=== PATIENT | male | born 1945 | race Caucasian/White ===

== ENCOUNTER 2017-08-12 13:36 | Observation (INO) | payer MEDICARE ==
[~2017-08-12] VITALS: Ht 180.3 cm; Wt 76.0 kg
[2017-08-12 13:42] VITALS: BP 210/90; PULSE 47; RESP 14; O2SAT 95
[2017-08-12] MEDS ORDERED: SODIUM CHLOR 0.9% 1000 ML INJ 1,000 ML IV SCH (14:05)
--- NOTE | 2017-08-12 14:24 | PD ---
HPI Chief Complaint: Flank/Kidney Pain Time Seen by Provider: 13:56 Travel History International Travel<30 days: No Contact w/Intl Traveler<30days: No Traveled to known affect area: No History of Present Illness HPI 71-year-old male complains of right flank pain and hematuria. Patient states that the symptoms started 2 days ago. Patient states that the hematuria is worse today. Patient states the pain started in the right flank area and moved to the right side abdomen today. Patient states the pain is more severe on the right low quadrant of the abdomen. Patient denies any pain radiation. Patient denies any dysuria or frequency. Patient denies any history kidney stone in the past. Patient denies any nausea vomiting diarrhea. Patient has history hypertension and hyperlipidemia. Patient denies history of diabetes. Patient smokes cigar daily. Patient denies any alcohol abuse. Patient came to a local urgent care this afternoon and was advised to go to ED for evaluation. PFSH Past Medical History Cardiovascular Problems: Yes ([place]) Social History Tobacco Use: No Allergies-Medications (Allergen,Severity, Reaction): Coded Allergies: No Known Allergies (Unverified , 08/12/17) Reported Meds & Prescriptions Reported Meds & Active Scripts Active Reported Losartan (Losartan Potassium) 25 Mg Tab 25 Mg PO DAILY Preservision-Lutein (Multiple Vitamins W/ Minerals) 1 Cap 1 Cap PO DAILY Pravastatin 10 Mg Tab 10 Mg PO HS Aspirin 81 Mg Chew 81 Mg CHEW DAILY Zoloft (Sertraline HCl) 100 Mg Tab 50 Mg PO BID Levothyroxine (Levothyroxine Sodium) 88 Mcg Tab 88 Mcg PO DAILY Review of Systems General / Constitutional: No: Fever Eyes: No: Visual changes HENT: No: Headaches Cardiovascular: No: Chest Pain or Discomfort Respiratory: No: Shortness of Breath Gastrointestinal: Positive: Abdominal Pain Genitourinary: Positive: Hematuria, No: Dysuria Musculoskeletal: No: Pain Skin: No Rash Neurologic: No: Weakness Psychiatric: No: Depression Endocrine: No: Polydipsia Hematologic/Lymphatic: No: Easy Bruising Physical Exam Narrative GENERAL: Well-nourished, well-developed patient. SKIN: Focused skin assessment warm/dry. HEAD: Normocephalic. EYES: No scleral icterus. No injection or drainage. NECK: Supple, trachea midline. No JVD or lymphadenopathy. CARDIOVASCULAR: Regular rate and rhythm without murmurs, gallops, or rubs. RESPIRATORY: Breath sounds equal bilaterally. No accessory muscle use. GASTROINTESTINAL: Abdomen soft, nondistended. Mild tenderness on palpation right mid abdomen. No rebound tenderness. No mass. MUSCULOSKELETAL: No cyanosis, or edema. BACK: Nontender without obvious deformity. No CVA tenderness. Neurologic exam normal. Data Data Last Documented VS Vital Signs Date Time Temp Pulse Resp B/P (MAP) Pulse Ox O2 Delivery O2 Flow Rate FiO2 08/12/17 16:00 44 18 159/72 (101) 99 Orders Orders Complete Blood Count With Diff (08/12/17 14:05) Comprehensive Metabolic Panel (08/12/17 14:05) Prothrombin Time / Inr (Pt) (08/12/17 14:05) Act Partial Throm Time (Ptt) (08/12/17 14:05) Urinalysis - C+S If Indicated (08/12/17 14:05) Iv Access Insert/Monitor (08/12/17 14:05) Ecg Monitoring (08/12/17 14:05) Oximetry (08/12/17 14:05) Sodium Chlor 0.9% 1000 Ml Inj (Ns 1000 M (08/12/17 14:05) Morphine Inj (Morphine Inj) (08/12/17 14:30) Ondansetron Inj (Zofran Inj) (08/12/17 14:30) Ct Abd/Pel W/O Iv Contrast (08/12/17 14:37) Urine Culture (08/12/17 13:30) Hydromorphone Pf Inj (Dilaudid Pf Inj) (08/12/17 15:15) Ketorolac Inj (Toradol Inj) (08/12/17 16:00) Ceftriaxone Inj (Rocephin Inj) (08/12/17 16:00) Consult Urology (08/12/17 ) (Hub Use Only)Inp Phy Cons/Ref (08/12/17 ) Place In Observation (08/12/17 ) Vital Signs (Adult) Q4H (08/12/17 17:06) Intake + Output CANDIS.QSHIFT (08/12/17 17:06) Sodium Chloride 0.9% Flush (Ns Flush) (08/12/17 17:15) Sodium Chloride 0.9% Flush (Ns Flush) (08/12/17 21:00) Ondansetron Inj (Zofran Inj) (08/12/17 17:15) Comprehensive Metabolic Panel (08/13/17 06:00) Complete Blood Count With Diff (08/13/17 06:00) Pt Request For Service (08/12/17 17:06) Case Management Consult (08/12/17 17:06) Scd Bilateral/Knee High CANDIS.BID (08/12/17 17:06) Naloxone Inj (Narcan Inj) (08/12/17 17:15) Docusate Sodium-Senna (Deena-Colace) (08/12/17 21:00) Magnesium Hydroxide Liq (Milk Of Magnesi (08/12/17 17:15) Sennosides (Senokot) (08/12/17 17:15) Bisacodyl Supp (Dulcolax Supp) (08/12/17 17:15) Lactulose Liq (Lactulose Liq) (08/12/17 17:15) Admit Order (Ed Use Only) (08/12/17 17:06) Labs Laboratory Tests Test 08/12/17 13:10 08/12/17 13:30 White Blood Count 9.4 TH/MM3 Red Blood Count 4.57 MIL/MM3 Hemoglobin 15.1 GM/DL Hematocrit 44.0 % Mean Corpuscular Volume 96.3 FL Mean Corpuscular Hemoglobin 33.0 PG Mean Corpuscular Hemoglobin Concent 34.2 % Red Cell Distribution Width 13.1 % Platelet Count 166 TH/MM3 Mean Platelet Volume 8.6 FL Neutrophils (%) (Auto) 76.5 % Lymphocytes (%) (Auto) 16.0 % Monocytes (%) (Auto) 6.5 % Eosinophils (%) (Auto) 0.6 % Basophils (%) (Auto) 0.4 % Neutrophils # (Auto) 7.2 TH/MM3 Lymphocytes # (Auto) 1.5 TH/MM3 Monocytes # (Auto) 0.6 TH/MM3 Eosinophils # (Auto) 0.1 TH/MM3 Basophils # (Auto) 0.0 TH/MM3 CBC Comment DIFF FINAL Differential Comment Prothrombin Time 10.6 SEC Prothromb Time International Ratio 1.0 RATIO Activated Partial Thromboplast Time 26.3 SEC Blood Urea Nitrogen 21 MG/DL Creatinine 1.13 MG/DL Random Glucose 98 MG/DL Total Protein 7.9 GM/DL Albumin 4.1 GM/DL Calcium Level 9.0 MG/DL Alkaline Phosphatase 51 U/L Aspartate Amino Transf (AST/SGOT) 16 U/L Alanine Aminotransferase (ALT/SGPT) 25 U/L Total Bilirubin 0.5 MG/DL Sodium Level 141 MEQ/L Potassium Level 4.2 MEQ/L Chloride Level 104 MEQ/L Carbon Dioxide Level 28.7 MEQ/L Anion Gap 8 MEQ/L Estimat Glomerular Filtration Rate 64 ML/MIN Uric Acid 4.6 MG/DL Total Creatine Kinase 105 U/L Creatine Kinase MB 3.0 NG/ML Troponin I LESS THAN 0.02 NG/ML Urine Color RED Urine Turbidity CLOUDY Urine pH 5.5 Urine Specific [place] 1.031 Urine Protein 100 mg/dL Urine Glucose (UA) NEG mg/dL Urine Ketones TRACE mg/dL Urine Occult Blood LARGE Urine Nitrite NEG Urine Bilirubin NEG Urine Urobilinogen LESS THAN 2.0 MG/DL Urine Leukocyte Esterase NEG Urine RBC /hpf Urine WBC 88 /hpf Urine Bacteria FEW /hpf Urine Mucus FEW /lpf Microscopic Urinalysis Comment CULTURE INDICATED MDM Medical Decision Making Medical Screen Exam Complete: Yes Emergency Medical Condition: Yes Interpretation(s) [address] scan abdomen and pelvis shows mild obstructive uropathy on the right ureter with a proximal ureteral calculus measuring between 4-5 mm. CBC within normal limit. CMP within normal limit. BUN 21. UA positive for RBC WBC and bacteria. Differential Diagnosis Differential diagnosis including nephrolithiasis, pyelonephritis, hematuria, abdominal aortic aneurysm. Narrative Course 71-year-old male with right flank pain and right-sided abdominal pain and hematuria. Normal saline solution 1 25 cc an hour. Morphine 2 mg IV. Zofran 4 mg IV. Dilaudid 0.5 mg IV. Rocephin 1 g IV. Toradol 30 mg IV. Diagnosis Primary Impression: Nephrolithiasis Additional Impression: Intractable abdominal pain Jarvis Fitzpatrick MD Aug 12, 2017 14:24
[2017-08-12] MEDS ORDERED: MORPHINE SULFATE 2 MG/ML INJ IV PUSH ONE (14:30)
[2017-08-12] MEDS ORDERED: ONDANSETRON HCL 4 MG/2 ML VIAL IV PUSH ONE (14:30)
[2017-08-12 14:46] LABS: AUTOMATED NEUTROPHIL # 7.2 TH/MM3 (1.8-7.7); BASOPHIL % 0.4 % (0.0-2.0); EOSINOPHIL # 0.1 TH/MM3 (0-0.4); EOSINOPHIL % 0.6 % (0.0-4.0); HEMOGLOBIN 15.1 GM/DL (13.0-17.0); LYMPHOCYTE # 1.5 TH/MM3 (1.0-4.8); MEAN CELL VOLUME 96.3 FL (80.0-100.0); MEAN CORPUSCULAR HGB CONC 34.2 % (32.0-36.0); MEAN PLATELET VOLUME 8.6 FL (7.0-11.0); MONO % 6.5 % (0.0-8.0); MONOCYTE # 0.6 TH/MM3 (0-0.9); NEUT % 76.5 % (16.0-70.0); PLATELET COUNT 166 TH/MM3 (150-450); RED BLOOD COUNT 4.57 MIL/MM3 (4.50-5.90); RED CELL DISTRIBUTION WIDTH 13.1 % (11.6-17.2); WHITE BLOOD COUNT 9.4 TH/MM3 (4.0-11.0)
[2017-08-12 14:55] LABS: PROTHROMBIN TIME - PATIENT 10.6 SEC (9.8-11.6)
[2017-08-12 15:04] LABS: ALBUMIN 4.1 GM/DL (3.4-5.0); ALT (GPT) 25 U/L (12-78); AST (GOT) 16 U/L (15-37); BICARBONATE 28.7 MEQ/L (21.0-32.0); BLOOD UREA NITROGEN 21 MG/DL (7-18); CHLORIDE 104 MEQ/L (98-107); CREATININE 1.13 MG/DL (0.60-1.30); GLOMERULAR FILTRATION RATE 64 ML/MIN (>89); GLUCOSE,RANDOM 98 MG/DL (74-106); SODIUM (NA) 141 MEQ/L (136-145)
[2017-08-12 15:06] LABS: ALKALINE PHOSPHATASE 51 U/L (45-117); TOTAL BILIRUBIN ADULT 0.5 MG/DL (0.2-1.0); TOTAL PROTEIN 7.9 GM/DL (6.4-8.2)
[2017-08-12 15:07] LABS: BACTERIA, URINE FEW /hpf; BILIRUBIN, URINE NEG (NEG); BLOOD, URINE LARGE (NEG); GLUCOSE,URINE NEG (NEG); KETONE, URINE TRACE mg/dL (NEG); MUCUS URINE FEW /lpf (OCC); NITRITE,URINE NEG (NEG); PH, URINE 5.5 (5.0-8.5); URINE LEUKOCYTE ESTERASE NEG (NEG)
[2017-08-12 15:08] LABS: URINE COLOR RED (YELLW/STRAW)
[2017-08-12] MEDS ORDERED: HYDROmorphone HCL PF 0.5 MG/0.5 ML SYRINGE IV PUSH ONE (15:15)
[2017-08-12] MEDS ORDERED: ZOLO100T PO (15:28)
[2017-08-12] MEDS ORDERED: ASPI-516 CHEW (15:28)
[2017-08-12] MEDS ORDERED: LEVO88TA2 PO (15:28)
[2017-08-12] MEDS ORDERED: LOSA25TA PO (15:28)
[2017-08-12] MEDS ORDERED: PRESCAP6 PO (15:28)
[2017-08-12] MEDS ORDERED: PRAV10TA PO (15:28)
--- NOTE | 2017-08-12 15:35 | RADRPT ---
EXAM DATE/TIME: 08/12/2017 15:23 [facility] COMPARISON: No previous studies available for comparison. INDICATIONS : Right flank pain with hematuria for three days. ORAL CONTRAST: No oral contrast ingested. RADIATION DOSE: 6.36 CTDIvol (mGy) MEDICAL HISTORY : Cardiovascular disease. SURGICAL HISTORY : None. ENCOUNTER: Initial ACUITY: 3 days PAIN SCALE: 8/10 LOCATION: Right flank TECHNIQUE: Volumetric scanning of the abdomen and pelvis was performed. Using automated exposure control and ad justment of the mA and/or kV according to patient size, radiation dose was kept as low as reasonably achievable to obtain optimal diagnostic quality images. DICOM format image data is available electro nically for review and comparison. FINDINGS: LOWER LUNGS: The visualized lower lungs are clear. LIVER: Homogeneous density without lesion. There is no dilation of the biliary tree. No calcified gallston es. SPLEEN: Normal size without lesion. PANCREAS: Within normal limits. KIDNEYS: Normal in size and shape. There is no mass, stone, or hydronephrosis on the left. Mild obstructive u ropathy on the right secondary to a proximal ureteral calculus measuring 4-5 mm. ADRENAL GLANDS: Within normal limits. VASCULAR: There is no aortic aneurysm. Atherosclerotic calcifications. BOWEL/MESENTERY: Scattered diverticulosis without diverticulitis. There is no free intraperitoneal air or fluid. ABDOMINAL WALL: Within normal limits. RETROPERITONEUM: There is no lymphadenopathy. BLADDER: No wall thickening or mass. REPRODUCTIVE: Within normal limits. INGUINAL: There is no lymphadenopathy or hernia. MUSCULOSKELETAL: Within normal limits for patient age. CONCLUSION: 1. Mild obstructive uropathy on the right secondary to a proximal ureteral calculus measuring 4-5 mm. 2. Diverticulosis without diverticulitis. Lino Madrid MD on August 12, 2017 at 15:32 Board Certified Radiologist. This report was verified electronically.
[2017-08-12 16:00] VITALS: BP 159/72; PULSE 44; RESP 18; O2SAT 99
[2017-08-12] MEDS ORDERED: cefTRIAXone INJ 1,000 MG in SODIUM CHLORIDE 0.9% INJ 100 ML IV ONE (16:00)
[2017-08-12] MEDS ORDERED: KETOROLAC TROMETHAMINE 30 MG/ML (IVP) VIAL IV PUSH ONE (16:00)
[2017-08-12] MEDS ORDERED: SENNOSIDES 8.6 MG TAB PO PRN (17:15)
[2017-08-12] MEDS ORDERED: NALOXONE HCL 0.4 MG/ML AMP IV PUSH PRN (17:15)
[2017-08-12] MEDS ORDERED: BISACODYL 10 MG SUPP RECTAL PRN (17:15)
[2017-08-12] MEDS ORDERED: MAGNESIUM HYDROXIDE SUSP 30 ML CUP PO PRN (17:15)
[2017-08-12] MEDS ORDERED: LACTULOSE SYRUP 20 GM/30 ML CUP PO PRN (17:15)
[2017-08-12] MEDS ORDERED: SODIUM CHLORIDE 0.9% FLUSH 10 ML FLUSH IV FLUSH PRN (17:15)
--- NOTE | 2017-08-12 17:28 | HHI.HP ---
HPI Service Family Medicine Primary Care Physician No Primary Care Physician Admission Diagnosis nephrolithiasis. Intractable pain. Diagnoses: International Travel<30 Days: No Contact w/Intl Traveler<30days: No History of Present Illness Patient is a 71M with history of hypertension, CAD, hypothyroidism, depression who presents with intractable right flank and abdominal pain. PCP: None HPI: He has had 4-7 days of back pain, which initially he thought was from working out. He weight lifts, jogs 4 times per week at baseline. Yesterday he noted gross blood in his urine. This is the first occurrence. It has occurred every time he is urinated since yesterday. It is not painful. The patient initially had migrated from the back to the RLQ then to the midabdomen this morning. He states that the pain also became more intense. It is now dull but pain caused nausea when more severe. The pain is constant. He has no history of kidney stones. He has no dysuria. He denies fevers, chills. Review of Systems Constitutional: DENIES: Fever, Weight gain, Weight loss, Chills Eyes: DENIES: Blurred vision, Diplopia, Vision loss Ears, nose, mouth, throat: COMPLAINS OF: Hearing loss (chronic) Respiratory: DENIES: Cough, Wheezing, Hemoptysis, Sputum production, Shortness of breath Cardiovascular: DENIES: Chest pain, Palpitations, Syncope, Lower Extremity Edema Gastrointestinal: COMPLAINS OF: Abdominal pain, Constipation, Nausea, DENIES: Black stools, Bloody stools, Diarrhea, Vomiting Genitourinary: COMPLAINS OF: Hematuria, DENIES: Urinary frequency, Urinary incontinence, Urgency, Dysuria Musculoskeletal: COMPLAINS OF: Back pain, DENIES: Joint Swelling Integumentary: DENIES: Pruritus, Rash Hematologic/lymphatic: DENIES: Bruising, Lymphadenopathy Neurologic: DENIES: Headache, Localized weakness Psychiatric: DENIES: Anxiety, Depression Past Family Social History Past Medical History [place]: stent and angiography 1996 CAB08/21/2011 HTN Hypothyroidism Deafness Depression Past Surgical History CABG and stenting as above Reported Medications Reported Meds & Active Scripts Active Reported Losartan (Losartan Potassium) 25 Mg Tab 25 Mg PO DAILY Preservision-Lutein (Multiple Vitamins W/ Minerals) 1 Cap 1 Cap PO DAILY Pravastatin 10 Mg Tab 10 Mg PO HS Aspirin 81 Mg Chew 81 Mg CHEW DAILY Zoloft (Sertraline HCl) 100 Mg Tab 50 Mg PO BID Levothyroxine (Levothyroxine Sodium) 88 Mcg Tab 88 Mcg PO DAILY Allergies: Coded Allergies: No Known Allergies (Unverified , 08/12/17) Active Ordered Medications Inpatient Medications Bisacodyl (Dulcolax Supp) 10 mg DAILY PRN RECTAL SEVERE CONSITIPATION; Start 08/12/17 at 17:15; Status UNV Ceftriaxone Sodium 1000 mg/ Sodium Chloride 100 ml @ 200 mls/hr ONCE ONCE IV Last administered on 08/12/17 16:08; Start 08/12/17 at 16:00; Stop 08/12/17 at 16:29; Status DC Hydromorphone HCl (Dilaudid Pf Inj) 0.5 mg ONCE ONCE IV PUSH Last administered on 08/12/17 15:19; Start 08/12/17 at 15:15; Stop 08/12/17 at 15:16 ; Status DC Ketorolac Tromethamine (Toradol Inj) 30 mg ONCE ONCE IV PUSH Last administered on 08/12/17 16:07; Start 08/12/17 at 16:00; Stop 08/12/17 at 16:01 ; Status DC Lactulose (Lactulose Liq) 30 ml DAILY PRN PO SEVERE CONSITIPATION; Start at 17:15; Status UNV Magnesium Hydroxide (Milk Of Magnesia Liq) 30 ml Q12H PRN PO Mild constipation ; Start 08/12/17 at 17:15; Status UNV Morphine Sulfate (Morphine Inj) 2 mg ONCE ONCE IV PUSH Last administered on 14:28; Start 08/12/17 at 14:30; Stop 08/12/17 at 14:32; Status DC Naloxone HCl (Narcan Inj) 0.4 mg UNSCH PRN IV PUSH SEE LABEL COMMENTS; Start 08/12/17 at 17:15; Status UNV Ondansetron HCl (Zofran Inj) 4 mg Q6H PRN IVP NAUSEA OR VOMITING; Start at 17:15; Status UNV Senna/Docusate Sodium (Deena-Colace) 1 tab BID PO ; Start 08/12/17 at 21:00; Status UNV Sennosides (Senokot) 17.2 mg Q12H PRN PO Moderate constipation; Start 08/12/17 at 17:15; Status UNV Sodium Chloride (NS Flush) 2 ml BID IV FLUSH ; Start 08/12/17 at 21:00; Status UNV Family History Mother: cardiac Father: unknown, at 101 Siblings: healthy Children: healthy Social History Lives with Just moved from [facility] Tobacco: cigars 1/3 daily x 1 year, quit tobacco 1984 (30 years 1PPD) Alcohol: 1 drink (martini or scotch) daily Illicit: denies Physical Exam Vital Signs Vital Signs Date Time Temp Pulse Resp B/P (MAP) Pulse Ox O2 Delivery O2 Flow Rate FiO2 08/12/17 16:00 44 18 159/72 (101) 99 08/12/17 13:42 47 14 210/90 (130) 95 Physical Exam GENERAL: Well-nourished, elderly male. He is in no apparent distress. He is sitting up in bed. SKIN: Warm and dry. No obvious rashes or ecchymoses. HEAD: Atraumatic. Normocephalic. EYES: Pupils equal and round. No scleral icterus. No injection or drainage. ENT: No nasal bleeding or discharge. Mucous membranes pink and moist. NECK: Trachea midline. No JVD. CARDIOVASCULAR: Regular rate and rhythm. No murmurs, gallops, or rubs on auscultation. RESPIRATORY: No accessory muscle use. Clear to auscultation bilaterally with no wheezes or rhonchi. BACK: No CVA tenderness noted GASTROINTESTINAL: Abdomen soft, nondistended. Normal bowel sounds. Mild tenderness to palpation over the epigastric area. No hepatic or splenic enlargement noted. MUSCULOSKELETAL: Extremities without clubbing, cyanosis, or edema. No obvious deformities. NEUROLOGICAL: Awake and alert. No obvious cranial nerve deficits. Motor grossly within normal limits. Grossly normal strength. Normal speech. PSYCHIATRIC: Appropriate mood and affect; insight and judgment normal. Laboratory Laboratory Tests Test 08/12/17 13:10 08/12/17 13:30 White Blood Count 9.4 Red Blood Count 4.57 Hemoglobin 15.1 Hematocrit 44.0 Mean Corpuscular Volume 96.3 Mean Corpuscular Hemoglobin 33.0 Mean Corpuscular Hemoglobin Concent 34.2 Red Cell Distribution Width 13.1 Platelet Count 166 Mean Platelet Volume 8.6 Neutrophils (%) (Auto) 76.5 Lymphocytes (%) (Auto) 16.0 Monocytes (%) (Auto) 6.5 Eosinophils (%) (Auto) 0.6 Basophils (%) (Auto) 0.4 Neutrophils # (Auto) 7.2 Lymphocytes # (Auto) 1.5 Monocytes # (Auto) 0.6 Eosinophils # (Auto) 0.1 Basophils # (Auto) 0.0 CBC Comment DIFF FINAL Differential Comment Prothrombin Time 10.6 Prothromb Time International Ratio 1.0 Activated Partial Thromboplast Time 26.3 Blood Urea Nitrogen 21 Creatinine 1.13 Random Glucose 98 Total Protein 7.9 Albumin 4.1 Calcium Level 9.0 Alkaline Phosphatase 51 Aspartate Amino Transf (AST/SGOT) 16 Alanine Aminotransferase (ALT/SGPT) 25 Total Bilirubin 0.5 Sodium Level 141 Potassium Level 4.2 Chloride Level 104 Carbon Dioxide Level 28.7 Anion Gap 8 Estimat Glomerular Filtration Rate 64 Urine Color RED Urine Turbidity CLOUDY Urine pH 5.5 Urine Specific [place] 1.031 Urine Protein 100 Urine Glucose (UA) NEG Urine Ketones TRACE Urine Occult Blood LARGE Urine Nitrite NEG Urine Bilirubin NEG Urine Urobilinogen LESS THAN 2.0 Urine Leukocyte Esterase NEG Urine RBC Urine WBC 88 Urine Bacteria FEW Urine Mucus FEW Microscopic Urinalysis Comment CULTURE INDICATED Date/Time Source Procedure Growth Status 08/12/17 13:30 Urine Random Urine Urine Culture Pending Received Result Diagram: 08/12/17 1310 08/12/17 1310 Imaging Last Impressions Abdomen/Pelvis CT 08/12/17 0247 Signed Impressions: Service Date/Time: August 15:23 - CONCLUSION: 1. Mild obstructive uropathy on the right secondary to a proximal ureteral calculus measuring 4-5 mm. 2. Diverticulosis without diverticulitis. Lino Madrid MD Course Patient was seen and evaluated in the ED by ED physician. Basic labs, UA, NS bolus of 1 L administered. Under management including Zofran, morphine, Dilaudid , Toradol 1. CT abdomen pelvis performed. Urology consulted. Caprini VTE Risk Assessment Caprini VTE Risk Assessment: Mod/High Risk (score >= 2) Caprini Risk Assessment Model Point Value = 1 Point Value = 2 Point Value = 3 Point Value = 5 Age 41-60 Minor surgery BMI > 25 kg/m2 Swollen legs Varicose veins or History of unexplained or recurrent spontaneous Oral contraceptives or hormone replacement Sepsis (< 1 month) Serious lung disease, including pneumonia (< 1 month) Abnormal pulmonary function Acute myocardial infarction Congestive heart failure (< 1 month) History of inflammatory bowel disease Medical patient at bed rest Age 61-74 Arthroscopic surgery Major open surgery (> 45 min) Laparoscopic surgery (> 45 min) Malignancy Confined to bed (> 72 hours) Immobilizing plaster cast Central venous access Age >= 75 History of VTE Family history of VTE Factor V Leiden Prothrombin [id number] Lupus anticoagulant Anticardiolipin antibodies Elevated serum homocysteine Heparin-induced thrombocytopenia Other congenital or acquired thrombophilia Stroke (< 1 month) Elective arthroplasty Hip, pelvis, or leg fracture Acute spinal cord injury (< 1 month) Prophylaxis Regimen Total Risk Factor Score Risk Level Prophylaxis Regimen 0-1 Low Early ambulation 2 Moderate Order ONE of the following: *Sequential Compression Device (SCD) *Heparin 5000 units SQ BID 3-4 Higher Order ONE of the following medications: *Heparin 5000 units SQ TID *Enoxaparin/Lovenox 40 mg SQ daily (WT < 150 kg, CrCl > 30 mL/min) *Enoxaparin/Lovenox 30 mg SQ daily (WT < 150 kg, CrCl > 10-29 mL/min) *Enoxaparin/Lovenox 30 mg SQ BID (WT < 150 kg, CrCl > 30 mL/min) AND/OR *Sequential Compression Device (SCD) 5 or more Highest Order ONE of the following medications: *Heparin 5000 units SQ TID (Preferred with Epidurals) *Enoxaparin/Lovenox 40 mg SQ daily (WT < 150 kg, CrCl > 30 mL/min) *Enoxaparin/Lovenox 30 mg SQ daily (WT < 150 kg, CrCl > 10-29 mL/min) *Enoxaparin/Lovenox 30 mg SQ BID (WT < 150 kg, CrCl > 30 mL/min) AND *Sequential Compression Device (SCD) Assessment and Plan Assessment and Plan 71-year-old male with severe right flank pain and CT findings suggestive of obstructive uropathy due to nephrolithiasis. He'll be admitted for observation for pain control, further management of nephrolithiasis, urology evaluation. Code Status Full code Discussed Condition With Dr. Sinai Hale Problem List: (1) Nephrolithiasis ICD Codes: N20.0 - Calculus of kidney Status: Acute Plan: Assessment: * On evaluation, patient is noted to have cloudy red urine, 100 protein, trace ketones, large blood, 88 WBCs. * CT abdomen and pelvis showing mild obstructive element in the proximal right ureter * Urine culture pending Plan: * NS at maintenance rate * Strain urine * Flomax * Pain control with [place] 5-325 mg pain 1-5. Dilaudid 1 mg IV every 4 hours pain 6-10. * Scheduled Toradol 15 mg IV every 6 hours * Urology consulted, patient is NPO after midnight * Rocephin 1 given in ED. UA notable for negative leukocyte esterase and negative nitrite. Monitor CBC and consider antibiotics for worsening symptoms, pending urine culture (2) Intractable abdominal pain ICD Codes: R10.9 - Unspecified abdominal pain Status: Acute Plan: * as above (3) HTN (hypertension) ICD Codes: I10 - Essential (primary) hypertension Status: Chronic Plan: Patient with HTN and CAD status post CABG and stenting remotely. He also has a history of hyperlipidemia. * Continue home dose losartan at 25 mg daily * Continue pravastatin 10 mg nightly * Hold 81mg daily aspirin * PRN clonidine (4) Depression ICD Codes: F32.9 - Major depressive disorder, single episode, unspecified Status: Chronic Plan: Chronic. Patient is on Zoloft at home. He does not exhibit any evidence of exacerbation of mood symptoms. * Continue Zoloft 50 mg twice daily (5) Hypothyroidism ICD Codes: E03.9 - Hypothyroidism, unspecified Status: Chronic Plan: Chronic. Patient is on low-dose levothyroxine. * Levothyroxine 88 g daily to continue (6) Fluids/Electrolytes/Nutrition/Prophylaxis Status: Acute Plan: Fluids: NS @ 115ml/hr Electrolytes: monitor and replete as needed Nutrition: regular diet now, NPO after midnight DVT Prophylaxis: Early ambulation. Hold /bilateral SCDs] GI Prophylaxis: [steroids/ventilator/GIB/burn] PRN anti-HTN: Clonidine 0.1mg PO PRN for SBP > 180/ and/or DBP > 100 Problem Qualifiers (1) Depression: Aixa De Oliveira MD R2 Aug 12, 2017 17:28
[2017-08-12] MEDS ORDERED: ACETAMINOPHEN/HYDROcodone 325 MG/5 MG TAB PO PRN (17:45)
[2017-08-12] MEDS ORDERED: HYDROmorphone HCL PF 1 MG/ML VIAL IV PUSH PRN (17:45)
[2017-08-12 19:30] LABS: TROPONIN I LESS THAN 0.02 NG/ML (0.02-0.05)
[2017-08-12] MEDS ORDERED: TAMSULOSIN HCL 0.4 MG CAP PO SCH (21:00)
[2017-08-12 21:16] VITALS: BP 158/71; PULSE 50; RESP 16; TEMP 97.9; O2SAT 96
[2017-08-12] MEDS: SODIUM CHLOR 0.9% 1000 ML INJ 1,000 ML IV SCH (21:48)
[2017-08-12] MEDS: SODIUM CHLORIDE 0.9% FLUSH 10 ML FLUSH IV FLUSH SCH (21:48)
[2017-08-12] MEDS: DOCUSATE SODIUM 50 MG/SENNA 8.6 MG TAB PO SCH (21:49)
[2017-08-12] MEDS ORDERED: cloNIDine HCL 0.1 MG TAB PO PRN (23:00)
[2017-08-13] MEDS: KETOROLAC TROMETHAMINE 30 MG/ML (IVP) VIAL IV PUSH SCH ×3 (00:14→11:45)
[2017-08-13] MEDS: ONDANSETRON HCL 4 MG/2 ML VIAL IVP PRN ×3 (00:14→11:45)
[2017-08-13 01:59] VITALS: BP 135/60; PULSE 45; RESP 16; TEMP 97.7; O2SAT 97
[2017-08-13 05:51] VITALS: BP 157/74; PULSE 45; RESP 16; TEMP 97.6; O2SAT 97
[2017-08-13] MEDS ORDERED: LEVOTHYROXINE SODIUM 88 MCG TAB PO SCH (06:00)
[2017-08-13 06:16] LABS: AUTOMATED NEUTROPHIL # 5.9 TH/MM3 (1.8-7.7); BASOPHIL % 0.2 % (0.0-2.0); EOSINOPHIL # 0.1 TH/MM3 (0-0.4); EOSINOPHIL % 0.7 % (0.0-4.0); HEMATOCRIT 39.8 % (39.0-51.0); HEMOGLOBIN 13.4 GM/DL (13.0-17.0); LYMPHOCYTE # 1.4 TH/MM3 (1.0-4.8); MEAN CELL VOLUME 96.2 FL (80.0-100.0); MEAN CORPUSCULAR HEMOGLOBIN 32.3 PG (27.0-34.0); MEAN CORPUSCULAR HGB CONC 33.6 % (32.0-36.0); MEAN PLATELET VOLUME 9.2 FL (7.0-11.0); MONO % 8.8 % (0.0-8.0); MONOCYTE # 0.7 TH/MM3 (0-0.9); NEUT % 73.3 % (16.0-70.0); PLATELET COUNT 140 TH/MM3 (150-450); RED BLOOD COUNT 4.14 MIL/MM3 (4.50-5.90); RED CELL DISTRIBUTION WIDTH 13.2 % (11.6-17.2)
[2017-08-13] MEDS: SODIUM CHLOR 0.9% 1000 ML INJ 1,000 ML IV SCH ×2 (06:26→11:24)
[2017-08-13 06:40] LABS: ALKALINE PHOSPHATASE 43 U/L (45-117); ALT (GPT) 17 U/L (12-78); AST (GOT) 14 U/L (15-37); BICARBONATE 26.4 MEQ/L (21.0-32.0); BLOOD UREA NITROGEN 26 MG/DL (7-18); CALCIUM 8.2 MG/DL (8.5-10.1); CHLORIDE 108 MEQ/L (98-107); CREATININE 1.55 MG/DL (0.60-1.30); GLOMERULAR FILTRATION RATE 44 ML/MIN (>89); GLUCOSE,RANDOM 102 MG/DL (74-106); SODIUM (NA) 143 MEQ/L (136-145); TOTAL BILIRUBIN ADULT 0.3 MG/DL (0.2-1.0); TOTAL PROTEIN 6.4 GM/DL (6.4-8.2)
[2017-08-13 08:20] VITALS: BP 151/68; PULSE 47; RESP 18; TEMP 97.6; O2SAT 96
--- NOTE | 2017-08-13 08:52 | MB ---
cc: DAVEY DIAZ DATE OF CONSULTATION 08/13/2017 REASON FOR CONSULTATION Mr. Jin is a pleasant 71-year-old male who presented with a one-week history of back pain. He also had some nausea associated with it and had some hematuria noted. He denies any fever or chills and he denies any history of kidney stones in the past. A CT scan was performed in the emergency room demonstrating a 4.5 mm right proximal ureteral calculus with mild hydronephrosis. The patient was kept overnight and received IV fluids. His pain has improved and options were discussed including surgery and observation. PAST MEDICAL HISTORY He is medical history includes: 1. Coronary artery disease status post CABG. 2. Hypertension 3. Hypothyroidism 4. Deafness 5. Depression PAST SURGERIES History is notable for CABG with stenting. CURRENT MEDICATIONS Please refer to the chart. ALLERGIES He has NO KNOWN DRUG ALLERGIES. FAMILY HISTORY Family history is notable for heart disease. SOCIAL HISTORY Currently drinks one drink a day and smokes cigars on occasion, but has a history of one pack per day smoking for 30 years and quit in 1984. Denies using any drugs. REVIEW OF SYSTEMS Notes abdominal pain, right-sided flank pain associated with some nausea. Denies diarrhea or constipation. Denies bleeding disorders, gait disturbances, heat or cold tolerance. Denies psychiatric problems. Denies chest pain at present. Denies shortness of breath. Denies headaches or dizziness. Denies problems with his vision. The remaining review of systems were reviewed and were negative. PHYSICAL EXAM VITAL SIGNS: His present vital signs this morning, temperature is 97.6, heart rate is 45, respiratory rate is 16, blood pressure 157/74, 97% on room air. GENERAL: He is a well-developed, well-nourished 71-year-old male in no acute distress. HEENT: Normocephalic, atraumatic. Pupils equal, round, regular, and react to light. Extraocular movements intact. NECK: Supple. HEART: Regular rate and rhythm. LUNGS: Clear. ABDOMEN: Soft, nontender and nondistended. : Normal phallus. Testes are descended. There is no CVA tenderness. EXTREMITIES: Show no evidence of cyanosis, clubbing or edema. NEUROLOGIC: Cranial nerves: II-XII are intact. SKIN: There are no lesions identified. PSYCH: Generalized mood. MUSCULOSKELETAL: Neck is midline. LABORATORY VALUES White count 8.0, hemoglobin 13.4, hematocrit 39.8, platelet count of 140. Sodium 143, potassium 4.3, chloride 108, CO2 26.4, BUN 26, creatinine 1.5, glucose of 102, PT is 10.6, INR is 1.0, PTT is 26.3. Urinalysis shows numerous red cells. Again imaging studies show mild obstructive uropathy secondary to proximal right ureteral calculus measuring 4.5 mm in size, diverticulosis without diverticulitis is noted. ASSESSMENT This is a 71-year-old male with a 4.5 mm proximal ureteral stone with mild obstructive uropathy noted on CT scan. Options discussed including cystoscopy with stenting versus observation. The patient desires to proceed with observation at this point and can be discharged with pain medicine and antiemetics. He can follow up in the clinic next week and we can assess his symptoms at that time. if he has not passed a stone and is still symptomatic, we will schedule extracorporeal shock wave lithotripsy. Thank you for the consult and allowing me to precipitate in the care of this patient. Davey GEORGE /8:19 AM /8:44 AM
[2017-08-13] MEDS: SODIUM CHLORIDE 0.9% FLUSH 10 ML FLUSH IV FLUSH SCH (09:00)
[2017-08-13] MEDS ORDERED: LOSARTAN 25 MG TAB PO SCH (09:00)
[2017-08-13] MEDS ORDERED: MULTIVITAMINS/MINERALS THERAPEUTIC TAB PO SCH (09:00)
[2017-08-13] MEDS ORDERED: SERTRALINE HCL 50 MG TAB PO SCH (09:00)
[2017-08-13] MEDS: DOCUSATE SODIUM 50 MG/SENNA 8.6 MG TAB PO SCH (09:54)
[2017-08-13] MEDS ORDERED: PERC10TA27 PO (10:22)
[2017-08-13] MEDS ORDERED: TAMS5CAP PO (10:22)
[2017-08-13] MEDS ORDERED: KETO10 PO (10:22)
[2017-08-13] MEDS ORDERED: ZOFR4TAB3 SL (10:23)
--- NOTE | 2017-08-13 10:23 | HHI.DCPOC ---
Discharge Care Plan Diagnosis: (1) HTN (hypertension) (2) Depression (3) Intractable abdominal pain (4) Nephrolithiasis Goals to Promote Your Health * To prevent worsening of your condition and complications * To maintain your health at the optimal level Directions to Meet Your Goals Take your medications as prescribed Follow your dietary instruction Follow activity as directed Keep your appointments as scheduled Take your immunizations and boosters as scheduled If your symptoms worsen call your PCP, if no PCP go to Urgent Care Center or Emergency Room Smoking is Dangerous to Your Health. Avoid second hand smoke Call the 24-hour hour crisis hotline for domestic abuse at Fidencio Cummings MD, R3 Aug 13, 2017 10:22
--- NOTE | 2017-08-13 10:23 | HHI.DCPOC ---
Discharge Care Plan Diagnosis: (1) HTN (hypertension) (2) Depression (3) Intractable abdominal pain (4) Nephrolithiasis Goals to Promote Your Health * To prevent worsening of your condition and complications * To maintain your health at the optimal level Directions to Meet Your Goals Take your medications as prescribed Follow your dietary instruction Follow activity as directed Keep your appointments as scheduled Take your immunizations and boosters as scheduled If your symptoms worsen call your PCP, if no PCP go to Urgent Care Center or Emergency Room Smoking is Dangerous to Your Health. Avoid second hand smoke Call the 24-hour hour crisis hotline for domestic abuse at Fidencio Cummings MD, R3 Aug 13, 2017 10:22
--- NOTE | 2017-08-13 10:23 | HHI.DCPOC ---
Discharge Care Plan Diagnosis: (1) HTN (hypertension) (2) Depression (3) Intractable abdominal pain (4) Nephrolithiasis Goals to Promote Your Health * To prevent worsening of your condition and complications * To maintain your health at the optimal level Directions to Meet Your Goals Take your medications as prescribed Follow your dietary instruction Follow activity as directed Keep your appointments as scheduled Take your immunizations and boosters as scheduled If your symptoms worsen call your PCP, if no PCP go to Urgent Care Center or Emergency Room Smoking is Dangerous to Your Health. Avoid second hand smoke Call the 24-hour hour crisis hotline for domestic abuse at Fidencio Cummings MD, R3 Aug 13, 2017 10:22
[2017-08-13] MEDS ORDERED: PERI8.6T PO (10:24)
--- NOTE | 2017-08-13 13:34 | HHI.FPPN ---
Subjective Remarks This is a 71-year-old male with history of cardiac stents, CABG, [place], hypertension and hypothyroidism who presented to the emergency department with flank pain that began vaguely approximately 3 days ago and gradually was referred to the abdomen. He had been lifting weights and thought that it was a muscular pain due to this. However on one day prior to admission he noticed dark urine and blood in his urine which persisted so he presented to the emergency department. CT showed obstructive uropathy right ureter and the urine showed gross blood. His initial creatinine was 1.1 and repeated was 1.5. Please see history and physical examination for this admission for additional historical details. Objective Vitals Vital Signs Date Time Temp Pulse Resp B/P (MAP) Pulse Ox O2 Delivery O2 Flow Rate FiO2 08/13/17 08:20 97.6 47 18 151/68 (95) 96 08/13/17 05:51 97.6 45 16 157/74 (101) 97 08/13/17 01:59 97.7 45 16 135/60 (85) 97 08/12/17 21:16 97.9 50 16 158/71 (100) 96 08/12/17 16:00 44 18 159/72 (101) 99 08/12/17 13:42 47 14 210/90 (130) 95 I/O 08/12/17 08/12/17 08/12/17 08/13/17 08/13/17 08/13/17 07:00 15:00 23:00 07:00 15:00 23:00 Intake Total 1500 ml 700 ml Output Total 100 ml 150 ml Balance 1400 ml -150 ml 700 ml Intake Oral 400 ml IV Total 1100 ml 700 ml Output Urine Total 100 ml 150 ml # Voids 1 Result Diagram: 08/13/17 0540 08/13/17 0540 Imaging Last 24 hours Impressions Abdomen/Pelvis CT 08/12/17 1437 Signed Impressions: Service Date/Time: August 15:23 - CONCLUSION: 1. Mild obstructive uropathy on the right secondary to a proximal ureteral calculus measuring 4-5 mm. 2. Diverticulosis without diverticulitis. Lino Madrid MD Objective Remarks O. CONSTITUTIONAL/GEN: normally nourished, in NAD. EYES: conjunctiva normal, PERRLA, EOMI. ENT: Mouth and pharynx normal. NECK: thyroid midline, carotids symmetrical. LUNGS: clear A-P, respiratory effort is normal. CARDIOVASCULAR: RR without murmur or gallop. No significant edema. GI/ABD: soft without masses, without organomegaly. : no CVA tenderness this morning NEURO: No focal deficits. SKIN: color normal, no rashes noted. HEME/LYMPH: no bruising, petechia or significant adenopathy MUSC: back is normal in appearance. Extremities are normal in appearance. PSYCH/MENTAL STATUS: Alert and oriented x 3. A/P Assessment and Plan 71-year-old male with severe right flank pain and CT findings suggestive of obstructive uropathy due to nephrolithiasis. He was admitted for observation for pain control, further management of nephrolithiasis, urology evaluation. He declined any operative procedure and opted to be discharged home to take pain medication and antinausea medication and strain his urine there. He will follow-up with urology. Discharge Planning Home today with pain medicine, antinausea medicine, Flomax and a urine strainer. Attending Attestation Patient seen and examined. Case reviewed and discussed with the resident team. Agree with plan of care as discussed with me and documented in the resident note. Problem List: (1) Nephrolithiasis ICD Codes: N20.0 - Calculus of kidney Status: Acute Plan: Assessment: * On evaluation, patient is noted to have cloudy red urine, 100 protein, trace ketones, large blood, 88 WBCs. * CT abdomen and pelvis showing mild obstructive element in the proximal right ureter * Urine culture pending Plan: * NS at maintenance rate * Strain urine * Flomax * Pain control with [place] 5-325 mg pain 1-5. Dilaudid 1 mg IV every 4 hours pain 6-10. * Scheduled Toradol 15 mg IV every 6 hours * Urology consulted, patient is NPO after midnight * Rocephin 1 given in ED. UA notable for negative leukocyte esterase and negative nitrite. Monitor CBC and consider antibiotics for worsening symptoms, pending urine culture (2) Intractable abdominal pain ICD Codes: R10.9 - Unspecified abdominal pain Status: Acute Plan: * as above (3) HTN (hypertension) ICD Codes: I10 - Essential (primary) hypertension Status: Chronic Plan: Patient with HTN and CAD status post CABG and stenting remotely. He also has a history of hyperlipidemia. * Continue home dose losartan at 25 mg daily * Continue pravastatin 10 mg nightly * Hold 81mg daily aspirin * PRN clonidine (4) Depression ICD Codes: F32.9 - Major depressive disorder, single episode, unspecified Status: Chronic Plan: Chronic. Patient is on Zoloft at home. He does not exhibit any evidence of exacerbation of mood symptoms. * Continue Zoloft 50 mg twice daily (5) Hypothyroidism ICD Codes: E03.9 - Hypothyroidism, unspecified Status: Chronic Plan: Chronic. Patient is on low-dose levothyroxine. * Levothyroxine 88 g daily to continue (6) Fluids/Electrolytes/Nutrition/Prophylaxis Status: Acute Plan: Fluids: NS @ 115ml/hr Electrolytes: monitor and replete as needed Nutrition: regular diet now, NPO after midnight DVT Prophylaxis: Early ambulation. Hold /bilateral SCDs] GI Prophylaxis: [steroids/ventilator/GIB/burn] PRN anti-HTN: Clonidine 0.1mg PO PRN for SBP > 180/ and/or DBP > 100 Problem Qualifiers (1) Depression: Diane Beckford MD Aug 13, 2017 13:33
[2017-08-13] MEDS ORDERED: PRAVASTATIN SOD 10 MG TAB PO SCH (21:00)
[2017-08-16] MEDS ORDERED: ZOFR4TAB3 SL (16:00)
== END 2017-08-13 13:11 | disposition home or self-care (01) ==
LOC: NEPD 13:36 → NEDA 17:09 → NEPGCP 19:25
PROVIDERS: ADMIT Family Medicine; ATTEND Family Medicine
DX: N13.2 Hydronephrosis with renal and ureteral calculous obstruction (principal); I10 Essential (primary) hypertension; I25.10 Atherosclerotic heart disease of native coronary artery without angina pectoris; F32.9 Major depressive disorder, single episode, unspecified; E03.9 Hypothyroidism, unspecified; E78.5 Hyperlipidemia, unspecified; K57.90 Diverticulosis of intestine, part unspecified, without perforation or abscess without bleeding; H91.90 Unspecified hearing loss, unspecified ear; I25.2 Old myocardial infarction; F17.290 Nicotine dependence, other tobacco product, uncomplicated; Z95.5 Presence of coronary angioplasty implant and graft; Z95.1 Presence of aortocoronary bypass graft; Z79.899 Other long term (current) drug therapy
CPT/HCPCS: 74176; 80053; 81001; 82550; 82552; 84484; 84550; 85025; 85610; 85730; 87086; 96361; 96365; 96375; 96376; 97162; 99285; G0378; G8987; G8988; J0696; J1170; J1885; J2270; J2405; J7030